=== PATIENT | female | born 1995 | race Two or more races ===

== ENCOUNTER 2022-06-14 00:32 | Emergency (ER) | payer MEDICAID ==
[~2022-06-14] VITALS: Ht 160 cm; Wt 70.0 kg
[2022-06-14 01:26] VITALS: BP 107/63
[2022-06-14 02:05] LABS: Urine Specific Gravity 1.019 (1.001-1.035)
[2022-06-14 02:06] LABS: Urine Blood Negative /uL (Negative)
[2022-06-14 02:09] LABS: Urine Bacteria FEW /hpf (None Seen)
[2022-06-14 02:10] LABS: Urine WBC 0-3 /hpf (0 - 5)
== END 2022-06-14 07:56 | disposition left against medical advice (07) ==
LOC: ER 00:32
DX: R10.9 Unspecified abdominal pain (principal); R11.0 Nausea; Z53.21 Procedure and treatment not carried out due to patient leaving prior to being seen by health care provider
CPT/HCPCS: 81001

== ENCOUNTER 2022-09-08 18:11 | Emergency (ER) | payer MEDICAID ==
[~2022-09-08] VITALS: Ht 160 cm; Wt 68.2 kg
[2022-09-08 18:21] VITALS: BP 113/72
[2022-09-08 18:53] LABS: Basophils # (auto) 0 10 ^3/uL (0-0.2); Basophils % (auto) 0.4 % (0.0-2.0); Eosinophils # (auto) 0 10 ^3/uL (0-0.8); Eosinophils % (auto) 0.5 % (0.0-7.0); Hematocrit 42.5 % (36.0-46.0); Hemoglobin 14.6 g/dL (12.2-16.2); Lymphocytes # (auto) 2.5 10 ^3/uL (0.4-5.4); Lymphocytes % (auto) 32.9 % (10.0-50.0); Mean Corpuscular Hemoglobin 29.7 pg (28.0-32.0); Mean Corpuscular Hgb Conc. 34.4 g/dL (32.0-36.0); Mean Corpuscular Volume 86.4 fL (80.0-100.0); Monocytes # (auto) 0.4 10 ^3/uL (0-1.3); Monocytes % (auto) 4.9 % (0.0-12.0); Neutrophils # (auto) 4.6 10 ^3/uL (1.6-8.6); Neutrophils % (auto) 61.3 % (37.0-80.0); Nucleated Red Blood Cells % 0.1 %; Red Blood Cells 4.91 10^6/uL (4.0-5.20); Red Cell Distribution Width 11.9 % (11.8-14.3); White Blood Cell 7.5 10^3/uL (4.4-10.8)
[2022-09-08 19:05] LABS: INR 1.03 (0.9-1.15); Partial Thromboplastin Time 27.4 sec (24.6-33.4)
[2022-09-08 19:14] LABS: Albumin 4.1 g/dL (3.4-5.0); Calcium 9.4 mg/dL (8.5-10.1); Potassium 3.6 mmol/L (3.5-5.1)
[2022-09-08 19:17] LABS: BUN/Creatinine Ratio 16.1; Bilirubin, Total 0.4 mg/dL (0.2-1.0); Total Protein 7.6 g/dL (6.4-8.2)
== END 2022-09-08 22:33 | disposition home or self-care (01) ==
LOC: ER 18:13
DX: R07.89 Other chest pain (principal); R20.0 Anesthesia of skin; Z79.899 Other long term (current) drug therapy
CPT/HCPCS: 36415; 70450; 71046; 80053; 83735; 84484; 85025; 85610; 85730; 93005

== ENCOUNTER 2023-09-07 08:37 | Emergency (ER) | payer MEDICAID ==
[~2023-09-07] VITALS: Ht 160 cm; Wt 72.0 kg
[2023-09-07 09:13] LABS: Basophils # (auto) 0 10 ^3/uL (0-0.2); Eosinophils # (auto) 0.2 10 ^3/uL (0-0.8); Eosinophils % (auto) 2.2 % (0.0-7.0); Lymphocytes # (auto) 1.5 10 ^3/uL (0.4-5.4)
[2023-09-07 09:14] LABS: Basophils % (auto) 0.4 % (0.0-2.0); Hematocrit 36.3 % (36.0-46.0); Hemoglobin 11.4 g/dL (12.2-16.2); Lymphocytes % (auto) 21.6 % (10.0-50.0); Mean Corpuscular Hemoglobin 24.9 pg (28.0-32.0); Mean Corpuscular Hgb Conc. 31.5 g/dL (32.0-36.0); Monocytes # (auto) 0.3 10 ^3/uL (0-1.3); Monocytes % (auto) 4.7 % (0.0-12.0); Neutrophils # (auto) 5.1 10 ^3/uL (1.6-8.6); Neutrophils % (auto) 71.1 % (37.0-80.0); Red Blood Cells 4.59 10^6/uL (4.0-5.20); White Blood Cell 7.2 10^3/uL (4.4-10.8)
[2023-09-07 09:15] LABS: Red Cell Distribution Width 26.5 % (11.8-14.3)
[2023-09-07 09:35] LABS: Alanine Aminotransferase 16 U/L (7-40); Albumin 4.2 g/dL (3.2-4.8); Alkaline Phosphatase 122 U/L (46-116); Anion Gap 8 (5-15); Aspartate Aminotransferase 23 U/L (13-40); BUN/Creatinine Ratio 31.7 (10.0-20.0); Bilirubin, Total 0.7 mg/dL (0.2-1.0); Blood Urea Nitrogen 13 mg/dL (9-23); Calcium 9.3 mg/dL (8.5-10.1); Carbon Dioxide 23 mmol/L (20-30); Chloride 108 mmol/L (98-107); Glucose 90 mg/dL (74-106); Potassium 3.9 mmol/L (3.5-5.1); Sodium 139 mmol/L (136-145); Total Protein 6.2 g/dL (5.7-8.2)
[2023-09-07 09:41] LABS: Anisocytosis Slight; Platelet Estimate Adequate
[2023-09-07 09:42] LABS: Hypochromia Slight
[2023-09-07 10:21] LABS: Lipase 42 U/L (12-53)
[2023-09-07 12:03] LABS: Urine Bacteria FEW /hpf (None Seen); Urine Blood 3+ /uL (Negative); Urine Clarity HAZY (Clear); Urine Color Yellow (Yellow); Urine Mucus FEW (None Seen); Urine Protein, UAD Negative (Negative); Urine Specific Gravity 1.019 (1.001-1.035); Urine Urobilinogen Normal (Negative); Urine WBC 23 /hpf (0 - 5)
[2023-09-07 13:45] VITALS: BP 124/82; PULSE 88; RESP 15; TEMP 98.8; O2SAT 97
== END 2023-09-07 13:54 | disposition home or self-care (01) ==
LOC: ER 08:37 → EDBD 08:37 → ER 13:54
DX: K29.70 Gastritis, unspecified, without bleeding (principal); R10.2 Pelvic and perineal pain; K59.00 Constipation, unspecified; Z90.49 Acquired absence of other specified parts of digestive tract
CPT/HCPCS: 36415; 74018; 80053; 81001; 83690; 84702; 85025; 93005